=== PATIENT | male | born 1975 | race Caucasian/White ===

== ENCOUNTER 2023-08-14 12:15 | Outpatient (CLI) | payer BC, SELFPAY ==
[2023-08-14 09:22] LABS: Prothrombin Time 38.1 sec (9.1-11.1)
[2023-08-14 09:46] LABS: INR 4.3 (0.9-1.1)
== END 2023-08-14 12:16 | disposition home or self-care (01) ==
LOC: LBO 12:15
PROVIDERS: Visit Provider Internal Medicine Cardiovascular Disease
DX: Z95.2 Presence of prosthetic heart valve (principal)
CPT/HCPCS: 36415; 85610

== ENCOUNTER 2023-08-18 11:30 | Outpatient (CLI) | payer BC, SELFPAY ==
[2023-08-18 10:24] LABS: Prothrombin Time 52.8 sec (9.1-11.1)
[2023-08-18 11:10] LABS: INR 6.2 (0.9-1.1)
== END 2023-08-18 11:31 | disposition home or self-care (01) ==
LOC: LBO 11:30
PROVIDERS: Visit Provider Internal Medicine Cardiovascular Disease
DX: Z95.2 Presence of prosthetic heart valve (principal); Z79.01 Long term (current) use of anticoagulants
CPT/HCPCS: 36415; 85610

== ENCOUNTER 2023-08-21 10:15 | Outpatient (CLI) | payer BC, SELFPAY ==
[2023-08-21 09:53] LABS: Prothrombin Time 18.9 sec (9.1-11.1)
== END 2023-08-21 10:16 | disposition home or self-care (01) ==
LOC: LBO 10:15
PROVIDERS: Visit Provider Internal Medicine Cardiovascular Disease
DX: Z95.2 Presence of prosthetic heart valve (principal)
CPT/HCPCS: 36415; 85610

== ENCOUNTER 2023-09-01 11:31 | Outpatient (CLI) | payer BC, SELFPAY ==
[2023-09-01 11:45] LABS: Prothrombin Time 37.5 sec (9.1-11.1)
[2023-09-01 13:06] LABS: INR 4.2 (0.9-1.1)
== END 2023-09-01 11:32 | disposition home or self-care (01) ==
LOC: LBO 11:31
PROVIDERS: Visit Provider Internal Medicine Cardiovascular Disease
DX: Z95.2 Presence of prosthetic heart valve (principal)
CPT/HCPCS: 36415; 85610

== ENCOUNTER 2023-09-14 14:41 | Outpatient (CLI) | payer BC, SELFPAY ==
[2023-09-14 11:27] LABS: INR 1.2 (0.9-1.1)
== END 2023-09-14 14:42 | disposition home or self-care (01) ==
LOC: LBO 14:42
PROVIDERS: Visit Provider Internal Medicine Cardiovascular Disease
DX: Z95.2 Presence of prosthetic heart valve (principal); Z79.01 Long term (current) use of anticoagulants
CPT/HCPCS: 36415; 85610

== ENCOUNTER 2023-09-25 14:04 | Outpatient (CLI) | payer BC, SELFPAY ==
[2023-09-25 14:26] LABS: Prothrombin Time 70.7 sec (9.1-11.1)
[2023-09-25 14:46] LABS: INR 8.5 (0.9-1.1)
== END 2023-09-25 14:05 | disposition home or self-care (01) ==
LOC: LBO 14:07
PROVIDERS: Visit Provider Internal Medicine Cardiovascular Disease
DX: Z95.2 Presence of prosthetic heart valve (principal)
CPT/HCPCS: 36415; 85610

== ENCOUNTER 2023-09-28 11:00 | Outpatient (CLI) | payer BC, SELFPAY ==
[2023-09-28 16:19] LABS: INR 1.9 (0.9-1.1); Prothrombin Time 17.9 sec (9.1-11.1)
== END 2023-09-28 11:01 | disposition home or self-care (01) ==
LOC: LBO 09-29 11:00
PROVIDERS: Visit Provider Internal Medicine Cardiovascular Disease
DX: Z95.2 Presence of prosthetic heart valve (principal)
CPT/HCPCS: 36415; 85610